=== PATIENT | female | born 1975 | race Caucasian/White ===

== ENCOUNTER 2018-11-22 14:09 | Emergency (ER) | payer MEDICAID ==
[2018-11-22 14:14] VITALS: Ht 167.6 cm
[2018-11-22 15:19] LABS: BASOPHIL % 0.7 % (0-2); PLATELET COUNT 339 x10^3mcL (130-400)
[2018-11-22 15:27] LABS: RED CELL DISTRIBUTION WIDTH 16.5 % (11.5-14.5)
[2018-11-22 15:28] LABS: CALCIUM 8.7 mg/dL (8.5-10.1); CARBON DIOXIDE 27.8 mmol/L (21-32); CHLORIDE SERUM 103 mmol/L (98-107); CREATININE SERUM 0.7 mg/dL (0.6-1.0); GFR1 > 60 mL/min; GLUCOSE SERUM 118 mg/dL (74-106); POTASSIUM SERUM 3.8 mmol/L (3.5-5.1); SODIUM SERUM 138 mmol/L (136-145)
[2018-11-22 15:30] LABS: ALBUMIN 3.9 g/dL (3.4-5.0); ALKALINE PHOSPHATASE 42 U/L (46-116); ALT/SGPT 23 U/L (14-59); AST/SGOT 11 U/L (15-37); BILIRUBIN TOTAL 0.2 mg/dL (0.20-1.00); TOTAL PROTEIN, SERUM 7.4 g/dL (6.4-8.2)
[2018-11-22 16:06] VITALS: BP 99/65
== END 2018-11-22 16:23 | disposition home or self-care (01) ==
LOC: ED 14:09
PROVIDERS: Emergency Medicine
DX: R53.1 Weakness (principal); M54.6 Pain in thoracic spine; D64.9 Anemia, unspecified
CPT/HCPCS: 36415

== ENCOUNTER 2019-08-27 10:42 | Emergency (ER) | payer MEDICAID ==
[~2019-08-27] VITALS: Ht 165.1 cm; Wt 76.2 kg
[2019-08-27 10:57] VITALS: Ht 165.1 cm; Wt 76.2 kg
[2019-08-27 12:22] VITALS: BP 115/47
== END 2019-08-27 12:22 | disposition home or self-care (01) ==
LOC: ED 10:42
DX: B34.9 Viral infection, unspecified (principal); M54.9 Dorsalgia, unspecified